=== PATIENT | male | born 1965 | race Caucasian/White ===

== ENCOUNTER → 2024-04-18 13:23 | Outpatient (REF) | payer OTHER, SELFPAY | LOC: HWRAD 13:23 | PROVIDERS: ATTENDING PHYSICIAN Family Medicine | DX: R91.1 Solitary pulmonary nodule (principal) | CPT/HCPCS: 71250 ==

== ENCOUNTER 2024-06-25 11:43 | Emergency (ER) | payer OTHER, SELFPAY ==
[2024-06-25 11:57] VITALS: BP 119/80
--- NOTE | 2024-06-25 13:21 | ED.GENMED ---
History of Present Illness
General
Chief Complaint: Eye Problems
Source: patient
Exam Limitations: none
Time Seen by Provider: 06/25/24 12:30
Nursing documentation reviewed up to this point in time: agreed with
History of Present Illness
History of Present Illness:
59-year-old male with past medical history of hyperlipidemia presenting to the emergency department today with concerns of eye irritation over the past 2 days. 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
irritation to the eye at the time worsening symptoms over the past 2 days. At the at this point he mainly has discomfort and swelling to the right upper eyelid denies any visual changes was seen initially in urgent care sent to the ER.
Review of Systems
Review of Systems
Allergies reviewed?: Yes
All Other Systems: ROS reviewed and negative except as documented in HPI and ROS
Phy Exam
Physical Exam
Physical Exam:
GENERAL: Alert , in no apparent distress
EYE: Swelling and irritation to the upper right eyelid eye examination with normal anterior chamber slit-lamp examination with no cell and flare no significant evidence of injury or foreign body to the cornea, no fluorescein uptake no signs of
foreign body pupils equal and reactive
NECK: Supple, no significant adenopathy.
ENT: o/p clr, mmm.
CARDIAC: Regular rate and rhythm .
LUNGS: Clear breath sounds bilaterally, no acute respiratory distress, no wheezes/rales/rhonchi
ABDOMEN: Soft, without focal tenderness, no r/g, no cvat
NEUROLOGICAL: Alert and oriented, no focal neuro deficits
SKIN: Warm and dry, skin intact.
MUSCULOSKELETAL: No edema, well perfused.
PSYCH: Normal and appropriate interaction.
Course
Vital Signs
Initial and Last Documented VS:
Initial Vital Signs
Temp Pulse Resp BP Pulse Ox
98.2 F 70 16 119/80 98
06/25/24 11:57 06/25/24 11:57 06/25/24 11:57 06/25/24 11:57 06/25/24 11:57
Last Documented Vital Signs
Temp Pulse Resp BP Pulse Ox
98.2 F 70 16 119/80 98
06/25/24 11:57 06/25/24 11:57 06/25/24 11:57 06/25/24 11:57 06/25/24 11:57
MDM/Problems Addressed
MDM/Problems Addressed:
59-year-old male presenting to the emergency department today with concerns of right-sided eye irritation over the past 2 days. Seemingly worsening since. Upper eyelid mainly red and swollen. No signs of foreign body slit-lamp used without signs
of foreign body or injury to the cornea no fluorescein uptake no foreign body seen with lid everted patient does have inflammation to the eyelid potentially blepharitis or early preseptal cellulitis. Patient was started on antibiotics and otherwise
advised for close outpatient follow-up. Return precautions given.
*Critical Care Note
Total Time (30-74mins, 75-104mins- exclusive of procedures): Not Applicable
ED Attending Note
-
Portions of this chart may have been created with voice recognition software.� Occasional wrong word or��sound alike� substitutions may have occurred due to the inherent limitations of voice recognition software.
Discharge Plan
Departure
Patient Disposition: Home (Routine Discharge)
Date of Disposition: 06/25/24
Time of Disposition: 13:21
Patient with high blood pressure during this ER visit?: No
Condition: Good
Covid-19: Not Applicable
Discharge Problem:
Blepharitis
Instructions: Blepharitis
Prescriptions:
New
erythromycin 5 mg/gram (0.5 %) ointment
0.5 inch ophthalmic (eye) BID Qty: 3.5 0RF
amoxicillin-pot clavulanate 875-125 mg tablet
1 tab PO BID 7 Days Qty: 14 0RF
Referrals:
Maame Nielsen MD [Active] - Follow up in 5-7 days
Leo Riddle DO [Family Provider] -
Activity Restrictions/Additional Instructions:
You came to the emergency department today with concerns of irritation to right eye. Here had a reassuring assessment with normal eye pressure and no signs of retained foreign body to your cornea. Please keep the area clean and use the prescribed
topical antibiotic and oral antibiotic. Please follow-up with ophthalmology for ongoing symptoms. You can also use warm compresses to the area. Return to the emergency department for any worsening, new or concerning symptoms.
Interventions
Interventions:
*General Assessment Last Done: 06/25/24 12:31
Discharge Date and Time
Print Language: JORDANIAN
== END 2024-06-25 13:55 | disposition home or self-care (01) ==
LOC: EMR 11:43
PROVIDERS: EMERGENCY PHYSICIAN Emergency Medicine; FAMILY PHYSICIAN Family Medicine
DX: H01.001 Unspecified blepharitis right upper eyelid (principal); E78.5 Hyperlipidemia, unspecified
CPT/HCPCS: 99283

== ENCOUNTER → 2024-07-13 13:26 | Outpatient (REF) | payer OTHER, SELFPAY | LOC: PAVMRI 13:26 | PROVIDERS: ATTENDING PHYSICIAN Family Medicine | DX: R51.9 Headache, unspecified (principal) | CPT/HCPCS: 70030; 70553; A9575 ==

== ENCOUNTER → 2024-09-10 13:27 | Outpatient (REF) | payer OTHER, SELFPAY | LOC: RAD 13:27 | PROVIDERS: ATTENDING PHYSICIAN Family Medicine | DX: S69.92XA Unspecified injury of left wrist, hand and finger(s), initial encounter (principal) | CPT/HCPCS: 73140 ==